=== PATIENT | male | born 1955 ===

== ENCOUNTER 2017-10-23 05:49 | Day surgery (SDC) | payer OTHER, MEDICARE ==
[2017-10-12 10:40] VITALS: BMI 25.6
[2017-10-23] MEDS ORDERED: ceFAZolin IV 2 gm in Dextrose 2 GM/50 ML BAG IVPB ONE (07:28)
[2017-10-23] MEDS ORDERED: Lactated Ringer's 1,000 ML IV ONE ×3 (07:44→13:25)
[2017-10-23] MEDS ORDERED: Propofol 10 mg/ml Inj (20 ML) ONE (07:47)
[2017-10-23] MEDS ORDERED: Midazolam 2 MG/2 ML VIAL ONE (07:47)
[2017-10-23] MEDS ORDERED: ePHEDrine 50 mg/ml Inj ONE (09:50)
[2017-10-23] MEDS ORDERED: Neostigmine Methylsulfate 3mg/3ml Syringe IV ONE (11:17)
[2017-10-23] MEDS ORDERED: Lidocaine Hydrochloride 10 ML INJ ONE (11:42)
[2017-10-23] MEDS ORDERED: Bupivacaine HCl 0.5% PF (10 ml) Inj ONE (11:43)
--- NOTE | 2017-10-23 11:58 | PCM.ANESB1 ---
Interscalene Block - Brachial Plexus Date of Procedure: 10/23/17 Anesthesiologist: Sandeep Salmon Pre-Procedure Diagnosis: left shoulder rotator cuff tear Post-Procedure Diagnosis: left shoulder RTC repair Procedure Performed: Interscalene Block of Brachial Plexus Left - Procedure Interscalene Block of Brachial Plexus: This procedure was explained to the patient that it is for post-operative pain management. Consent was obtained after a thorough discussion with the patient regarding the benefits and possible complications of local anesthetic block of the Brachial Plexus at the Interscalene area. The patient was brought to the RR and standard monitors were applied. Time out was held with the RR nurse to confirm the correct surgery and appropriate block. After applying Oxygen by nasal cannula, the patient's head was gently rotated away from the left_ operative shoulder and the anterior scalene groove was carefully palpated. The ultrasound transducer was then applied to the skin in the transverse plane and the brachial plexus was visualized lateral to the carotid artery and in between the anterior and middle scalene muscles. After identification,the anterior lateral portion of the neck was prepped with Chlorprep solution three times and Lidocaine 1% was injected subcutaneously for topical analgesia. At this point, a # 22 gauge Stimuplex 2 inches insulated needle was inserted into the interscalene groove and directed in a caudal and midline direction. The needle was inserted lateral to the ultrasound transducer in-plane towards the brachial plexus in a [id number] direction. Needle advancement was performed carefully under direct ultrasound visualization. After repeated negative aspiration,__10___cc of__2%___,_Lidocaine__were injected and this was followed with _20____cc of __0.5___% _Bupivacaine_. Under ultrasound guidance the local anesthetics were observed surrounding the roots of the brachial plexus. The needle was removed intact and sterile dressing was applied. The patient had stable vital signs, was conscious and in no apparent distress. The patient tolerated the interscalene block of the bracheal plexus well with stable vital signs.
[2017-10-23] MEDS ORDERED: HYDROmorphone 0.5 mg/0.5 ml ISec IVP PRN (11:59)
--- NOTE | 2017-10-23 12:29 | PCM.SURG1 ---
Surgeon's Initial Post Op Note - Surgeon's Notes Surgeon: Ronald Nassar MD Instrumentation Technician: Rene Obrien PA-C Type of Anesthesia: General Endo, Block Regional Pre-Operative Diagnosis: Left shoulder #1 RTC tear. #2 biceps partial tear & tenosynovitis. #3 synovitis. #4 SA bursitis. #5 SA impingement. #6 degenerative SLAP / labral tear Operative Findings: Left shoulder #1 RTC tear (complete tear of SS/ partial tears of subscap & IS). #2 biceps partial tear & tenosynovitis. #3 synovitis. #4 SA bursitis. #5 SA impingement. #6 degenerative SLAP / labral tear Post-Operative Diagnosis: Left shoulder #1 RTC tear (complete tear of SS/ partial tears of subscap & IS). #2 biceps partial tear & tenosynovitis. #3 synovitis. #4 SA bursitis. #5 SA impingement. #6 degenerative SLAP / labral tear Operation Performed: Left shoulder: #1 Arthroscopic RTC repair. #2 Arthroscopic extensive debridement (labral tear/ synovectomy/ biceps tenotomy). #3 Arthroscopic subacromial decompression w/ acromioplasty. #4 Arthroscopic PRP injection. #5 Open biceps subpect LH tenodesis Specimen/Specimens Removed: specimen= none. complications= none. Implants= Arthrex 4x 4.75 biocomposite swivel lock anchors for RTC repair. 7mm biocomposite biceps tenodesis screw. fibertape / fiberwire suture Estimated Blood Loss: EBL {In ML}: 10 Blood Products Given: N/A Drains Used: No Drains Post-Op Condition: Good Date of Surgery/Procedure: 10/23/17 Time of Surgery/Procedure: 11:00
[2017-10-23 14:39] VITALS: BP 132/70; PULSE 76; RESP 18; TEMP 98; O2SAT 100
--- NOTE | 2017-11-07 04:57 | OP ---
PROCEDURE DATE: 10/23/2017 PREOPERATIVE DIAGNOSES: Left shoulder: 1. Complete rotator cuff tear. 2. Biceps partial tear and tenosynovitis with instability. 3. Subacromial bursitis. 4. Subacromial impingement. 5. Degenerative superior labrum anterior and posterior/labral tear. 6. Synovitis. POSTOPERATIVE DIAGNOSES: Left shoulder: 1. Complete rotator cuff tear (complete tear of supraspinatus/partial tear of subscapularis and infraspinatus). 2. Biceps tendon long head partial tear/tenosynovitis/instability. 3. Synovitis. 4. Subacromial bursitis. 5. Subacromial impingement. 6. Degenerative superior labrum anterior and posterior/labral tear. PROCEDURE: Left shoulder: 1. Arthroscopic rotator cuff repair. 2. Arthroscopic extensive debridement (debridement of labral tear/synovectomy/biceps tenotomy). 3. Arthroscopic subacromial decompression with acromioplasty. 4. Arthroscopic PRP injection intraarticular. 5. Open biceps long head tenodesis, subpectoralis location. SURGEON: Ronald Nassar MD CATTLE CARE WORKER: Michelle Obrien PA-C JUSTIFICATION FOR CATTLE CARE WORKER: Michelle Obrien is a certified physician advertising assistant whose skilled surgical services was an absolute necessity for successful completion of the procedure as she provided skilled surgical assistance with positioning of the patient, positioning of extremity, management of the surgical field, retraction of the neurovascular structures, passage of suture and facilitating rotator cuff repair as well as placement of anchors, preparation of proximal biceps and open procedure including docking site creation in proximal humerus and biceps tenodesis, subacromial decompression and management of arthroscopic equipment, wound closure, fitting and placement of shoulder immobilizer brace. Michelle Obrien was present for the entire case, was an absolute necessity for successful completion of the procedure. SPECIMENS: None. COMPLICATIONS: None. ANESTHESIA: General endotracheal anesthesia with a postop regional nerve block placed by Anesthesia staff in PACU. ESTIMATED BLOOD LOSS: 10 mL. DRAINS: None. COMPLICATIONS: None. DISPOSITION: The patient was extubated and transferred to PACU in stable condition having tolerated the procedure well. IMPLANTS: Arthrex 4.75 mm BioComposite SwiveLock anchors for rotator cuff repair x4 with associated FiberTape suture, 7 mm BioComposite biceps tenodesis screw, and FiberWire suture. INDICATIONS FOR SURGERY: The patient is a 62-year-old male with a past medical history significant for diabetes who presents to the office for the first time under my care on 12/20/2015 with right shoulder pain greater than left shoulder pain. The right shoulder was diagnosed with rotator cuff arthropathy and was indicated for reverse total shoulder replacement as he had three failed rotator cuff repairs including arthroscopic rotator cuff repair and open revision rotator cuff repair that failed over the scope of 2001 and 2002 followed by the last surgery in 05/2014. All three surgeries of the right shoulder failed, and he had consistent pain and disability over the right shoulder. All of these imaging indicated that he had complete rotator cuff tears with developing rotator cuff arthropathy and arthritis and was indicated for a reverse total shoulder replacement on the right shoulder. During the workup and treatment for his right shoulder, it became evident that his left shoulder was progressively worsening. He underwent MR arthrogram of the left shoulder at [facility] on 06/12/2016, this showed: 1. Complete full-thickness tear of the distal supraspinatus tendon with tendon retraction measuring 5 mm with contrast extravasation into the subacromial subdeltoid bursa. 2. Prominent partial articular surface tearing with moderate tendinopathy of the distal infraspinatus tendon with no tendon retraction and muscle atrophy. 3. Partial articular surface tearing of the distal subscapularis tendon with associated moderate tendinopathy. 4. Ronaldo and increased signal seen at the undersurface of the anterior glenoid labrum suggestive of degenerative fraying and partial tearing also at the posterior superior labrum. 5. Mild subchondral cyst formation of the greater tuberosity of the proximal humerus. 6. Moderate acromioclavicular joint space degenerative changes with joint space narrowing, subchondral edema, and bony hypertrophy. On my review of the MRI, there was significant subacromial impingement with a large rotator cuff tear of the supraspinatus and partial tears of the infraspinatus and subscapularis as well as partial tearing/tenosynovitis and instability of the long head biceps tendon. The patient had significant dysfunction of the left shoulder with pain that awoke him at night and was consistently rated 7 to 8 to 9 out of 10. He underwent multiple cortisone mixture injections for a total of 10 under my care over the past two years to the left shoulder. Each injection was targeted towards the subacromial space and the biceps groove which resulted in near-complete resolution of pain that lasted a few weeks both in the subacromial space as well as the anterior shoulder. Every injection resulted in complete pentecostal of function, and he was able to sleep at night and decrease his pain medication use. He was compliant with all recommendations including physical therapy, anti-inflammatory medication in the form of Mobic, compounded pain cream. When the injections wear off, the patient was requiring narcotic pain medication. Finally, he was indicated for left shoulder arthroscopic surgery. The rationale was to do the left shoulder prior to doing the right shoulder. This is a worker's comp case/[place] [employer] with a date of injury 05/09/1984. After appealing and court hearing, the surgery was approved. The rationale was to do the left shoulder surgery first and recover and heal from the rotator cuff repair and biceps tenodesis; and once she regained the left shoulder function, to proceed with right shoulder reverse total shoulder arthroplasty at his convenience. He was indicated for it. An approval was obtained for left shoulder arthroscopic rotator cuff repair, arthroscopic extensive debridement, arthroscopic subacromial decompression with acromioplasty, arthroscopic PRP injection, open subpectoralis biceps long head tenodesis. The risks, benefits, and alternatives of the procedure were discussed at length with the patient with the risks including not limited to infection, neurovascular damage, need for further surgery, failure of repair, failure of biceps tenodesis, stiffness, inability to return to pre-injury level of activity, need for further surgery, development of blood clots including DVT and PE, development of chronic pain and disability, anesthesia reactions including . After answering all of his questions, the patient stated that he understood the risks and wished to proceed with surgery. He watched surgical animation videos and diagnosis animation videos at length. After answering all of his questions, stated that he understood the multiple parts of his diagnosis as well as the multiple parts of his procedures to be done. I reviewed at length with him the postop rehab protocol, and he stated that he understood the need for compliance with the rehab protocol in order to maximize the chances of having successful outcome after surgery. He was referred to his primary care physician for pre-admission testing and medical clearance once the authorization for surgery was obtained and surgery was scheduled on 10/23/2017 at [facility]. PROCEDURE IN DETAIL: The patient was identified in the preoperative holding area, and the left shoulder was marked for surgery. Once again as described above, the risks, benefits, alternatives of the procedure were discussed at length with the patient, and appropriate consent was obtained. After a brief discussion with anesthesia staff, perioperative IV antibiotics in the form of 2 g Ancef were administered, and the patient was taken to the operating room and placed on the well-padded operating room table with the beach-chair positioner in the supine position, and all bony prominences and superficial neurovascular structures well padded. An initial timeout was done with the surgeon, anesthesia staff, OR staff, all in agreement with the patient, procedure being done, and extremity being operated on. General anesthesia was administered without difficulty or complication. Examination under anesthesia was carried out. Examination under anesthesia: Left shoulder with full range of motion compared to contralateral shoulder and compared to normal shoulder exam, significant crepitance localized to the subacromial space, with abduction and external rotation, the biceps tendon can be palpated dislocating and subluxing out of the bicipital groove, no swelling, no warmth, no erythema, skin intact, no significant instability of the glenohumeral joint or the AC joint. The patient was then carefully brought into the upright position in the beach-chair positioner with help from Anesthesia staff monitoring his hemodynamic status. Once it was determined that he can tolerate being in the upright position in the beach chair, the left shoulder was prepped and draped in standard sterile fashion. A final time-out was done with the surgeon, anesthesia staff, and OR staff, and all are in agreement with the patient, procedure being done and the extremity being operated on. 50 mL of normal saline were used to insufflate the glenohumeral joint with a spinal needle. A stab incision was made through the skin down the subcutaneous tissues down to the level of the posterior capsule to establish posterior portal. Blunt arthroscopic trocar and cannula were inserted into the glenohumeral joint, and insufflation with arthroscopic fluid was begun. With the use of spinal needle localization to localize optimal anterior portal placement at the rotator interval, the portal was placed with stab incision through the skin down the subcutaneous tissue down to the level of the capsule. The blunt trocar was inserted into the portal, and the glenohumeral joint was copiously irrigated for better visualization and removal of synovial debris. With the use of an arthroscopic probe, a diagnostic arthroscopy of the left shoulder was then carried out. The attention was first turned towards the axillary pouch where there was significant hypertrophic synovitis throughout the lining of the inferior and anterior shoulder, attention was then turned towards the glenohumeral joint where there was some signs of chondromalacia with no full-thickness defect seen, at the glenoid labrum there was a degenerative SLAP tear extending from the 3 o'clock position to the 9 o'clock position with complex degenerative tearing/SLAP tear. The biceps tendon exhibited a significant partial tear encompassing more than 50% of the biceps tendon with fibrillation and near-complete tear of the biceps with significant tendinopathy and tenosynovitis of the biceps tendon. The supraspinatus exhibited a complete rotator cuff tear encompassing almost the entire insertion of the supraspinatus starting from the anterior part with some posterior intact fibers. The infraspinatus and subscap exhibited significant partial tearing and fibrillation with no full-thickness component seen. CONTINUATION OF PROCEDURE: With the use of a scissor, a biceps tenotomy was carried out and the biceps tendon was released as it was determined to be a significant pain generator that was unstable with significant tendinopathy and partial tearing and he was indicated for a biceps tenodesis. The biceps tendon was released from its intraarticular position and would be the focus of a future tenodesis during the surgery. With the use of arthroscopic shaver and radiofrequency ablation, an extensive synovectomy and extensive debridement was carried out debriding the degenerative SLAP tear back to a smooth contour and stable labrum performing an extensive synovectomy while maintaining good hemostasis, debriding the partial rotator cuff tears of the subscapularis and infraspinatus and a chondroplasty of the glenoid. Once the intraarticular portion of the procedure was carried out to satisfaction with good hemostasis achieved and the extensive debridement carried out to satisfaction, attention was then turned to the subacromial space. The arthroscopic camera was inserted into the subacromial space and a lateral accessory portal was created with spinal needle localization. A stab incision was made through skin down to subcutaneous tissue down to the level of the subacromial space, and a blunt trocar was introduced to open up the portal. This would be a site of an accessory portal for the rotator cuff repair as well. A second accessory portal was created posterior to the lateral portal to gain access to the rotator cuff repair for passage of the suture and suture maintenance. Once the accessory portals were established with the used of radiofrequency ablation and the arthroscopic shaver and bur, a subacromial decompression was carried out performing a bursectomy and opening up the subacromial space with an accompanying acromioplasty to remove the bony impingement. This was done to satisfaction, opening up the subacromial space for the future rotator cuff repair and maintaining good hemostasis. Once this was completed to satisfaction, attention was turned towards evaluation of the rotator cuff tear in more detail. With the use of a cuff grasper, it was determined that the rotator cuff tear although large and retracted was reducible back to its footprint. There were some delamination of the tearing underneath; and with the use of an arthroscopic shaver and radiofrequency ablation, the irreparable parts of the supraspinatus tear were debrided back to the stable good tissue. Determination was made to proceed with a double row transosseous equivalent rotator cuff repair with placement of a medial row of anchors and a lateral row of anchors. The medial row of anchors were placed through a percutaneous incision directly at the footprint. With the use of an arthroscopic bur, the footprint of the supraspinatus was everted down to punctate bleeding bone to aid with healing. A 4.75 Biocomposite SwiveLock anchor from Arthrex double loaded with FiberTape was then placed anterior medial for the anterior medial row. The FiberTape and accompanying FiberWire suture were then passed successfully through the anterior aspect of the supraspinatus tear. A posterior medial 4.75 BioComposite SwiveLock anchor was then placed successfully at the posterior aspect of the footprint of the supraspinatus, and accompanying FiberTape and FiberWire suture were then passed as well through the posterior aspect of the supraspinatus tear. These suture ends were then used to probe the cuff, and indeed it was reducible, and a good repair would be carried out. With the use of arthroscopic shaver and radiofrequency ablation, the lateral row anchor placement points were debrided to allow for access, and the lateral row was placed. Knotless suture anchors in the form of a 4.75 Biocomposite SwiveLock anchor was used placing the posterior lateral row anchor first. The crisscross configuration grabbing suture from the anterior and the posterior aspect of the supraspinatus tendon that were passed through were then placed through the posterior lateral row anchor and the anchor was successfully placed with good configuration achieved. The steps were repeated while maintaining good tension for placement of the anterior lateral row anchor, and a successful rotator cuff repair was completed with a beautiful crisscross configuration of the FiberTape suture and FiberWire suture from the medial row with knotless fixation of the lateral row successfully carried out. Final images were taken of the rotator cuff repair, and good hemostasis was achieved. With the help of Anesthesia staff, 5 mL of PRP were obtained from a peripheral stick from the patient and this was injected intraarticularly. The camera was inserted into the glenohumeral joint once again, and the rotator cuff repair was visualized from an intraarticular point of view, and indeed there was a reduction of the roof of the glenohumeral joint with a stable rotator cuff repair visualized from the intraarticular aspect. With the use of arthroscopic shaver and radiofrequency ablation, the extensive synovectomy was completed while maintaining good hemostasis. Then all arthroscopic debris and fluid were removed. 5 mL of PRP were injected intraarticular to aid in rotator cuff repair healing. This was done after final images of the intraarticular glenohumeral joint were taken. At that point in time, the arthroscopic portals were reapproximated with 2-0 Vicryl suture for deep tissue followed by 3-0 Monocryl suture for skin. Attention was then turned towards the open portion of the case being the long head biceps tenodesis in a subpectoralis location. A 3-cm incision was made at the inferior aspect of the pectoralis tendon along the axilla. Incision made to skin down to subcutaneous tissue while maintaining good hemostasis down to the level of the deltopectoral fascia. Cephalic vein was identified and carefully retracted, and the deltopectoral interval was used to go down to the proximal humerus bone. With blunt palpation, the long head biceps tendon was identified and brought into our surgical field. There was significant tendinopathy and partial tearing on visual examination. The diseased biceps tissue was removed and excised. Tensioning for the biceps tenodesis was estimated with the elbow in flexion. Optimal tenodesis docking site was identified and debrided of overlying soft tissue. Guidewire was used and placed bicortically. Cannulated drill was then passed over the guidewire 7 mm with line to line fixation of the bio-tenodesis screw with the tendon. Near cortex was drilled creating a socket. Drill and guidewire were removed, and the wound was copiously irrigated removing bony debris. Proximal biceps tendon was prepared in whipstitch fashion with good tension approximated and achieved for the biceps tenodesis. The proximal 2 cm of the tendon were prepared with a FiberLoop suture in a whipstitch fashion. One end of the suture were then passed through a 7 mm bio-tenodesis screw, and the screw and the tendon were docked into the docking site for the biceps tenodesis of the proximal humerus at the subpectoralis location with good fixation achieved and a stable biceps tenodesis resulting. A free needle was then used to back up the construct with passage of the sutures through the tendon itself, and this was tied down with a knot pusher. Once this was secured, the wound was copiously irrigated, and good hemostasis was achieved. Deep tissue was reapproximated with #1 Vicryl suture followed by 2-0 Vicryl suture for subcutaneous tissue followed by 3-0 Monocryl suture for the skin. Sterile dressings were applied to the biceps tenodesis wound and the arthroscopic portals. The left arm was then placed in a shoulder immobilizer sling. The patient was then carefully brought into the supine position and transferred to a stretcher where he was extubated successfully from anesthesia without any complications. He was then transferred to PACU in stable condition having tolerated the procedure well. DISPOSITION: The patient is instructed to keep the dressings clean, dry, and intact and keep his left arm in the shoulder immobilizer sling at all times. He has been given a prescription for pain control in the form of Percocet. He will follow up in the office at [facility] under my care within one week and already has a postoperative appointment set up. He will contact me with any questions or concerns. Ronald Nassar MD
== END 2017-10-23 13:55 | disposition home or self-care (01) ==
LOC: C.SDS 05:49
PROVIDERS: ATTEND Student in an Organized Health Care Education/Training Program
DX: S46.812D Strain of other muscles, fascia and tendons at shoulder and upper arm level, left arm, subsequent encounter (principal); M75.22 Bicipital tendinitis, left shoulder; M75.52 Bursitis of left shoulder
CPT/HCPCS: 29823; 29826; 29827; 29828; 82948; C1713; J0171; J0690; J1170; J2250; J2704; J2710; J3010; J7120